=== PATIENT | male | born 1965 ===

== ENCOUNTER 2021-07-19 22:01 | Emergency (ER) | payer MEDICAID, OTHER ==
[~2021-07-19] VITALS: Ht 180.3 cm; Wt 65.8 kg
[2021-07-19 23:52] LABS: Basophils # (auto) 0 10 ^3/uL (0-0.2); Eosinophils # (auto) 0.1 10 ^3/uL (0-0.8); Hemoglobin 8.2 g/dL (12.2-16.2); Lymphocytes # (auto) 1.9 10 ^3/uL (0.4-5.4); Mean Corpuscular Volume 79.1 fL (80.0-100.0); Nucleated Red Blood Cells % 0.1 %
[2021-07-19 23:54] LABS: Basophils % (auto) 0.4 % (0.0-2.0); Hematocrit 25.1 % (36.0-46.0); Lymphocytes % (auto) 28.1 % (10.0-50.0); Mean Corpuscular Hgb Conc. 32.9 g/dL (32.0-36.0); Neutrophils # (auto) 3.7 10 ^3/uL (1.6-8.6); Neutrophils % (auto) 54.5 % (37.0-80.0); Red Blood Cells 3.17 10^6/uL (4.0-5.20); Red Cell Distribution Width 16.4 % (11.8-14.3); White Blood Cell 6.9 10^3/uL (4.4-10.8)
[2021-07-20 00:13] LABS: Calcium 8.5 mg/dL (8.5-10.1)
[2021-07-20 00:16] LABS: BUN/Creatinine Ratio 16.7
[2021-07-20 00:20] LABS: Bilirubin, Total 0.5 mg/dL (0.2-1.0); Total Protein 7.9 g/dL (6.4-8.2)
[2021-07-20 02:20] VITALS: BP 163/80
== END 2021-07-20 02:25 | disposition home or self-care (01) ==
LOC: EDSEX 22:01 → ER 22:01
DX: R10.84 Generalized abdominal pain (principal); R11.2 Nausea with vomiting, unspecified
CPT/HCPCS: 36415; 80053; 83690; 85025; 93005